=== PATIENT | male | born 1990 | race Caucasian/White ===

== ENCOUNTER 2024-05-06 16:19 | Emergency (ER) | payer BC, MEDICAID ==
[~2024-05-06] VITALS: Ht 177.8 cm; Wt 99.2 kg
[2024-05-06 16:21] VITALS: TEMP 99.2
[2024-05-06 17:10] LABS: ALANINE AMINOTRANSFERASE 35 U/L (12-78); ALBUMIN 4.3 G/DL (3.4-5.0); ALBUMIN/GLOBULIN RATIO 1.3 (1.1-1.5); ALKALINE PHOSPHATASE 77 IU/L (46-116); ANION GAP 13 (8-16); ASPARTATE AMINO TRANSFERASE 18 U/L (10-37); BILIRUBIN,TOTAL 0.5 MG/DL (0.1-1.0); BLOOD UREA NITROGEN 17 MG/DL (7-18); BUN/CREATININE RATIO 15.7 (10.0-20.0); CALCIUM 9.5 MG/DL (8.5-10.1); CHLORIDE 104 MMOL/L (99-107); CREATININE 1.08 MG/DL (0.60-1.10); GLUCOSE 117 MG/DL (70-104); LIPASE 47 U/L (16-77); POTASSIUM 3.5 MMOL/L (3.5-5.1); SODIUM 140 MMOL/L (135-145); TOTAL CARBON DIOXIDE 22.6 MMOL/L (24-32); TOTAL PROTEIN 7.7 G/DL (6.4-8.2); eCRCL 99 ML/MIN; eGFR 78 ML/MIN
[2024-05-06 17:59] LABS: HEMOGLOBIN 14.8 g/dl (14.0-17.9)
[2024-05-06 18:00] LABS: BASOPHILS # (AUTO) 0.1 X10'3 (0-0.2); BASOPHILS % (AUTO) 0.7 % (0-1); EOSINOPHILS # (AUTO) 0.2 X10'3 (0-0.9); EOSINOPHILS % (AUTO) 2.4 % (0-6); HEMATOCRIT 44.4 % (42.0-52.0); LYMPHOCYTES % (AUTO) 34.2 % (21-51); MEAN CORPUSCULAR HEMOGLOBIN 29.7 PG (27.0-31.0); MEAN CORPUSCULAR HGB CONC 33.3 g/dL (33.0-36.5); MEAN CORPUSCULAR VOLUME 89.2 FL (78-98); MEAN PLATELET VOLUME 8.8 FL (7.4-10.4); MONOCYTES # (AUTO) 0.5 X10'3 (0-0.9); MONOCYTES % (AUTO) 6.1 % (2-12); NEUTROPHILS # (AUTO) 5.1 X10'3 (1.8-7.7); NEUTROPHILS % (AUTO) 56.6 % (42-75); PLATELET COUNT 273 X10'3 (140-440); RED BLOOD COUNT 4.98 X10'6 (4.70-6.10); WHITE BLOOD COUNT 8.9 X10'3 (4.5-11.0)
[2024-05-06 18:06] VITALS: BP 117/80; PULSE 73; RESP 16; O2SAT 95
== END 2024-05-06 19:07 | disposition home or self-care (01) ==
LOC: ER 16:19
DX: R19.7 Diarrhea, unspecified (principal); F10.90 Alcohol use, unspecified, uncomplicated; F12.90 Cannabis use, unspecified, uncomplicated; Z88.1 Allergy status to other antibiotic agents; Z90.49 Acquired absence of other specified parts of digestive tract; Z98.890 Other specified postprocedural states; R11.0 Nausea
CPT/HCPCS: 36415; 80053; 83690; 85025; 99283

== ENCOUNTER 2024-11-05 16:04 | Emergency (ER) | payer BC ==
[~2024-11-05] VITALS: Ht 172.7 cm; Wt 109.0 kg
[2024-11-05] MEDS: ketorolac trometh 30MG/ML vial 30 MG/ML VIAL IM ONE (17:01)
[2024-11-05 17:04] VITALS: BP 127/71; PULSE 82; RESP 16; TEMP 97.8; O2SAT 95
== END 2024-11-05 17:07 | disposition home or self-care (01) ==
LOC: ER 16:04
DX: M25.561 Pain in right knee (principal); F12.90 Cannabis use, unspecified, uncomplicated; F10.90 Alcohol use, unspecified, uncomplicated; Z90.89 Acquired absence of other organs; Z90.49 Acquired absence of other specified parts of digestive tract; Z88.1 Allergy status to other antibiotic agents; Y90.9 Presence of alcohol in blood, level not specified
CPT/HCPCS: 29505; 73564; 99283

== ENCOUNTER 2025-01-05 11:52 | Outpatient (CLI) | payer BC | END 2025-01-05 23:59 | disposition home or self-care (01) | LOC: MRI02 11:52 | PROVIDERS: ATTEND Nurse Practitioner | DX: T14.8XXA Other injury of unspecified body region, initial encounter (principal); M25.561 Pain in right knee; M25.461 Effusion, right knee; R60.0 Localized edema; X58.XXXA Exposure to other specified factors, initial encounter; Y93.89 Activity, other specified; Y92.89 Other specified places as the place of occurrence of the external cause; Y99.8 Other external cause status | CPT/HCPCS: 73721 ==

== ENCOUNTER 2025-07-27 05:24 | Day surgery (SDC) | payer BC ==
--- NOTE | 2025-07-24 15:59 | ELECTROCARDIOGRAPH REPORT ---
[facility] Heart Test Date: 2025-07-24 Test Time: 15:58:09 Pat Name: THOM SHERWOOD Department: [facility]-PRE-OP Patient ID: [facility]-[id number] Room: Gender: M [employer] Cell Battery Technician: KARLY : 1990 Requested By: OMAR SCHMIDT Order Number: [id number] Reading MD: Dr. DEJON Lara Measurements Intervals [place] Rate: 73 P: 28 ND: 158 QRS: 31 QRSD: 94 T: 34 QT: 371 QTc: 409 Interpretive Statements Sinus rhythm Abnormal R-wave progression, early transition Electronically Signed On 07-24-2025 18:44:[address] DEJON Lara Please click the below link to view image of tracing.
[2025-07-24 16:04] LABS: MEAN PLATELET VOLUME 7.9 FL (7.4-10.4); PRE OP HEMATOCRIT 45.6 % (42.0-52.0); PRE OP HEMOGLOBIN 15.2 g/dL (14.0-17.9); PRE OP PLATELET COUNT 323 X10'3 (140-440); PRE OP WHITE BLOOD COUNT 11.8 10'3 (4.8-10.8); RED CELL DISTRIBUTION WIDTH 14.5 % (11.5-14.5)
[2025-07-24 16:17] LABS: PRE OP INR 1.0 INR; PRE OP PARTIAL THROMB. TIME 26.0 SECONDS (22-32); PRE OP PROTIME 10.2 SECONDS (9.0-12.0)
[2025-07-24 16:19] LABS: CREATININE 1.39 MG/DL (0.60-1.10); PRE OP ALT 71 U/L (30-65); PRE OP ANION GAP 8 (8-16); PRE OP AST 32 U/L (10-37); PRE OP BILIRUB, TOTAL 0.2 MG/DL (0.0-1.0); PRE OP GLUCOSE 85 MG/DL (70-104); PRE OP POTASSIUM 3.9 MMOL/L (3.4-5.1); PRE OP SODIUM 144 MMOL/L (135-145); TOTAL CARBON DIOXIDE 29.3 MMOL/L (24-32); eGFR 58 ML/MIN
--- NOTE | 2025-07-24 16:27 | RADIOLOGY REPORT ---
CHEST RADIOGRAPH Indication: PREOP Technique: Frontal and lateral view of the chest was obtained Comparison: None FINDINGS: Lines and Tubes: None Lungs: Clear Pleura: No effusion. No pneumothorax. Cardiomediastinal contours: Unremarkable Bones: Unremarkable IMPRESSION: No evidence of acute disease.
[2025-07-27] VITALS (12 sets, daily range): BP systolic 77–118; BP diastolic 51–82; PULSE 70–95; RESP 14–20; TEMP 96.3; O2SAT 93–97
[~2025-07-27] VITALS: Ht 177.8 cm; Wt 127.6 kg
[~2025-07-27 05:24] MED LIST: ACET-1025 PO; NAPR220C15 PO
[2025-07-27] MEDS: ringers solution, lacted 1,000 ML IV SCH (06:13)
[2025-07-27] MEDS: ceFAZolin 2gm/dext,iso 50mL 50 ML IV ONE (06:14)
[2025-07-27] MEDS ORDERED: fentaNYL/PF 50MCG/1 ML 2ML syringe IV PRN ×2 (06:35)
[2025-07-27] MEDS ORDERED: ringers solution, lacted 1,000 ML IV SCH (06:35)
[2025-07-27] MEDS ORDERED: ondansetron/PF 4mg/2ml inj IV PRN (06:35)
[2025-07-27] MEDS ORDERED: labetalol 20mg/4ml (5mg/ml) syringe IV PRN (06:35)
[2025-07-27] MEDS ORDERED: hydrALAZINE 20mg/ml inj. IV PRN (06:35)
[2025-07-27] MEDS ORDERED: morphine 4 MG/ML inj SYRINge IV PRN (06:35)
[2025-07-27] MEDS ORDERED: dexamethasone sod phosphate 4mg/ml inj. ONE (06:38)
[2025-07-27] MEDS ORDERED: midazolam 1 mg/ML 2ml injection ONE (06:38)
[2025-07-27] MEDS ORDERED: LIDOcaine 2% (20mg/ml) 5ml vial ONE (06:38)
[2025-07-27] MEDS ORDERED: fentaNYL/PF 50MCG/1 ML 2ML syringe ONE ×2 (06:38→07:01)
[2025-07-27] MEDS ORDERED: propofol inj 20 ML IV ONE (06:38)
[2025-07-27] MEDS ORDERED: acetaminophen 1,000mg/100ml IV 100 ML IV ONE (06:39)
[2025-07-27] MEDS ORDERED: bacitracin 15gm ointment TP ONE (06:39)
[2025-07-27] MEDS ORDERED: BUPIVAcaine 0.5% inj/PF 30 ML ONE (06:39)
[2025-07-27] MEDS ORDERED: ondansetron/PF 4mg/2ml inj ONE (06:39)
--- NOTE | 2025-07-27 08:53 | OPERATIVE REPORT ---
DATE OF SURGERY: 07/27/2025 DICTATING PHYSICIAN: Vic Armas MD PREOPERATIVE DIAGNOSIS: Symptomatic hardware, right distal femur. POSTOPERATIVE DIAGNOSIS: Symptomatic hardware, right distal femur. PROCEDURES PERFORMED: Removal of locking screw from the right distal femur. SURGEON: Vic Armas MD ANESTHESIA: Dr. Lim. ANESTHETIC TYPE: General. INDICATIONS: The patient is a pleasant gentleman with a symptomatic hardware affecting his right femur. He has a prior history of an intramedullary nail that has a screw that was packing out and causing him symptoms. Unfortunately, due to insurance reasons, the patient was unable to return to the surgeon who performed the operation primarily. Because this is a prominent screw and he has another distal locking screw, the decision was made to remove the screw. NARRATIVE SUMMARY OF THE PROCEDURE: After obtaining informed consent, the patient was brought to the operating room and placed in the supine position where he was prepped and draped in a normal sterile fashion, was accomplished, an incision was placed over his previous incision. We dissected down identifying the symptomatic screw head. The screw head had already backed out a fair amount. We then placed an incision over this area and then identified the screw. The screw was loose. We were able to remove it simply with a needle boom truck driver. After this was accomplished, fluoroscan was performed before and after to confirm the removal of the screw. The patient's incision was copiously irrigated with IrriSept and saline and the incision was then reapproximated and the patient was returned to the post-anesthesia care unit in stable condition. Vic Armas MD TID: [id number] RECEIPT: [id number] RYAN/GINGER
== END 2025-07-27 08:59 | disposition home or self-care (01) ==
LOC: PAS 05:24
PROVIDERS: ATTEND Orthopaedic Surgery
DX: T84.84XA Pain due to internal orthopedic prosthetic devices, implants and grafts, initial encounter (principal); M25.561 Pain in right knee; R94.31 Abnormal electrocardiogram [ECG] [EKG]; E11.9 Type 2 diabetes mellitus without complications; G47.30 Sleep apnea, unspecified; K21.9 Gastro-esophageal reflux disease without esophagitis; Z87.891 Personal history of nicotine dependence; Z79.899 Other long term (current) drug therapy; Z90.49 Acquired absence of other specified parts of digestive tract; Z90.89 Acquired absence of other organs; Z98.890 Other specified postprocedural states; Z88.8 Allergy status to other drugs, medicaments and biological substances; Y79.2 Prosthetic and other implants, materials and accessory orthopedic devices associated with adverse incidents; Y92.89 Other specified places as the place of occurrence of the external cause
CPT/HCPCS: 20680; 36415; 71046; 80053; 82948; 85025; 85610; 85730; 93005; J0131; J1100; J2003; J2250; J2405; J2704; J3010; J7120; Z7506; Z7512; A4615; A4618; A6449; A7000